=== PATIENT | male | born 1950 | race Caucasian/White ===

== ENCOUNTER 2021-04-23 11:50 | Emergency (ER) | payer MEDICARE, MEDICAID ==
[~2021-04-23] VITALS: Ht 177.8 cm; Wt 82.0 kg
[2021-04-23 11:50] VITALS: BP 136/93
[2021-04-23 12:42] LABS: BASOPHILS % (AUTO) 0.2 % (0-1); EOSINOPHILS % (AUTO) 0.1 % (0-6); HEMATOCRIT 34.2 % (42.0-52.0); HEMOGLOBIN 11.9 g/dl (14.0-17.9); LYMPHOCYTES # (AUTO) 0.5 X10'3 (1.1-4.8); LYMPHOCYTES % (AUTO) 10.6 % (21-51); MEAN CORPUSCULAR HEMOGLOBIN 37.1 PG (27.0-31.0); MEAN CORPUSCULAR HGB CONC 34.9 g/dL (33.0-36.5); MEAN CORPUSCULAR VOLUME 106.4 FL (78-98); MEAN PLATELET VOLUME 8.1 FL (7.4-10.4); MONOCYTES # (AUTO) 0.5 X10'3 (0-0.9); NEUTROPHILS # (AUTO) 3.8 X10'3 (1.8-7.7); NEUTROPHILS % (AUTO) 78.1 % (42-75); PLATELET COUNT 233 X10'3 (140-440); RED BLOOD COUNT 3.21 X10'6 (4.70-6.10); WHITE BLOOD COUNT 4.8 X10'3 (4.5-11.0)
[2021-04-23 12:58] LABS: APTT 31 SECONDS (22-32)
[2021-04-23] MEDS ORDERED: iohexol 350MG/ML 100ml bottle IV ONE ×2 (13:00→14:19)
[2021-04-23 13:52] LABS: ALANINE AMINOTRANSFERASE 26 U/L (12-78); ALBUMIN 3.3 G/DL (3.4-5.0); ALBUMIN/GLOBULIN RATIO 0.7 (1.1-1.5); ALKALINE PHOSPHATASE 83 IU/L (46-116); ANION GAP 5 (8-16); ASPARTATE AMINO TRANSFERASE 21 U/L (10-37); BILIRUBIN,TOTAL 0.3 MG/DL (0.1-1.0); BLOOD UREA NITROGEN 21 MG/DL (7-18); BUN/CREATININE RATIO 18.1 (5.4-32.0); CALCIUM 9.6 MG/DL (8.5-10.1); CHLORIDE 98 MMOL/L (99-107); CREATININE 1.16 MG/DL (0.60-1.10); GLUCOSE 114 MG/DL (70-104); POTASSIUM 4.7 MMOL/L (3.5-5.1); SODIUM 129 MMOL/L (135-145); TOTAL CARBON DIOXIDE 26.1 MMOL/L (24-32); TOTAL PROTEIN 7.9 G/DL (6.4-8.2); eGFR 62 ML/MIN
[2021-04-23] MEDS ORDERED: normal saline 1000ML IV soln IVB ONE (15:15)
[2021-04-23] MEDS ORDERED: SOTROVIMAB 500mg injection 500 MG in normal saline 100ml IV soln 100 ML IV ONE (15:40)
[2021-04-23] MEDS ORDERED: BENZ-38 PO (16:10)
[2021-04-23] MEDS ORDERED: LEVO500T90 PO (16:10)
--- NOTE | 2021-04-23 18:25 | NUR ---
Pt and family member given and understands d/c instructions. IV d/c'd, catheter was intact. Ambulatory with a steady gait.
== END 2021-04-23 18:27 | disposition home or self-care (01) ==
LOC: ER 11:50
DX: U07.1 COVID-19 (principal); J12.82 Pneumonia due to coronavirus disease 2019; R04.2 Hemoptysis; J42 Unspecified chronic bronchitis; F17.200 Nicotine dependence, unspecified, uncomplicated; Z88.0 Allergy status to penicillin
CPT/HCPCS: 36415; 71045; 71250; 71275; 80053; 83605; 84145; 85025; 85610; 85730; 87040; 87635; 96360; 99285; C9803; J3490; J7030; M0247; Q0247; Q9967

== ENCOUNTER 2021-07-01 06:22 | Day surgery (SDC) | payer MEDICARE, MEDICAID ==
[~2021-07-01] VITALS: Ht 177.8 cm; Wt 92.3 kg
[2021-07-01] MEDS ORDERED: normal saline 1000ml 1,000 ML IV SCH ×2 (06:45→08:35)
[2021-07-01 07:00] VITALS: BP 160/100
[2021-07-01] MEDS ORDERED: CLOP75TA34 PO (07:13)
[2021-07-01] MEDS ORDERED: ASPI-1265 PO (07:13)
[2021-07-01] MEDS ORDERED: ATOR40TA72 PO (07:13)
[2021-07-01 07:36] LABS: BASOPHILS % (AUTO) 0.6 % (0-1); EOSINOPHILS # (AUTO) 0.1 X10'3 (0-0.9); EOSINOPHILS % (AUTO) 2.8 % (0-6); HEMATOCRIT 38.8 % (42.0-52.0); HEMOGLOBIN 13.5 g/dl (14.0-17.9); LYMPHOCYTES # (AUTO) 0.9 X10'3 (1.1-4.8); LYMPHOCYTES % (AUTO) 17.1 % (21-51); MEAN CORPUSCULAR HEMOGLOBIN 37.1 PG (27.0-31.0); MEAN CORPUSCULAR HGB CONC 34.8 g/dL (33.0-36.5); MEAN CORPUSCULAR VOLUME 106.7 FL (78-98); MEAN PLATELET VOLUME 8.9 FL (7.4-10.4); MONOCYTES # (AUTO) 0.5 X10'3 (0-0.9); NEUTROPHILS # (AUTO) 3.7 X10'3 (1.8-7.7); NEUTROPHILS % (AUTO) 69.5 % (42-75); PLATELET COUNT 166 X10'3 (140-440); RED BLOOD COUNT 3.64 X10'6 (4.70-6.10); RED CELL DISTRIBUTION WIDTH 14.5 % (11.5-14.5); WHITE BLOOD COUNT 5.3 X10'3 (4.5-11.0)
[2021-07-01] MEDS ORDERED: midazolam 1 mg/ML 2ml injection ONE (08:31)
[2021-07-01] MEDS ORDERED: fentaNYL/PF 50MCG/1 ML 2ML syringe ONE (08:32)
--- NOTE | 2021-07-01 08:55 | NUR ---
Patient back from angio. Procedure cancelled d/t patient no being off Plavix for 5 days.
--- NOTE | 2021-07-01 09:10 | NUR ---
Patient's daughter here to pickup patient. Explained to her why procedure was cancelled. Patient dressed, IV d/c'd. All belongings with patient on d/c.
== END 2021-07-01 09:10 | disposition home or self-care (01) ==
LOC: SSTAY O 06:22
PROVIDERS: ATTEND Radiology Diagnostic Radiology
DX: E27.8 Other specified disorders of adrenal gland (principal); Z53.8 Procedure and treatment not carried out for other reasons; C34.02 Malignant neoplasm of left main bronchus; Z88.0 Allergy status to penicillin; Z86.73 Personal history of transient ischemic attack (TIA), and cerebral infarction without residual deficits; Z79.01 Long term (current) use of anticoagulants; Z79.82 Long term (current) use of aspirin; Z79.899 Other long term (current) drug therapy; Z87.891 Personal history of nicotine dependence
CPT/HCPCS: 36415; 85025; 85610; J2250; J3010

== ENCOUNTER 2021-07-04 09:27 | Day surgery (SDC) | payer MEDICARE, MEDICAID ==
[~2021-07-04] VITALS: Ht 177.8 cm; Wt 91.5 kg
[~2021-07-04 09:27] MED LIST: ASPI-1265 PO; ATOR40TA72 PO; CLOP75TA34 PO
[2021-07-04] MEDS ORDERED: normal saline 1000ml 1,000 ML IV PRN (10:05)
[2021-07-04 10:21] VITALS: BP 129/104
[2021-07-04] MEDS ORDERED: heparin sodium, porcine/PF 100unit/ml 5ML syringe ONE (10:33)
[2021-07-04] MEDS ORDERED: LIDOcaine 1%/PF 5ML 10 MG/ML VIAL ONE (10:33)
--- NOTE | 2021-07-04 11:42 | NUR ---
Problems reprioritized. Patient report given, questions answered & plan of care reviewed with Pauly ENRIQUEZ.
[2021-07-04] MEDS ORDERED: fentaNYL/PF 50MCG/1 ML 2ML syringe ONE (12:45)
[2021-07-04] MEDS ORDERED: midazolam 1 mg/ML 2ml injection ONE ×2 (12:45→13:13)
[2021-07-04 13:36] VITALS: BP 130/90
[2021-07-04] MEDS ORDERED: normal saline 1000ml 1,000 ML IV SCH (13:40)
[2021-07-04 13:45] VITALS: BP 124/78
[2021-07-04 14:00] VITALS: BP 120/86
[2021-07-04 14:15] VITALS: BP 108/72
[2021-07-04 14:30] VITALS: BP 117/82
== END 2021-07-04 14:45 | disposition home or self-care (01) ==
LOC: SSTAY O 09:27
PROVIDERS: ATTEND Radiology Diagnostic Radiology
DX: C34.02 Malignant neoplasm of left main bronchus (principal); Z88.0 Allergy status to penicillin; Z79.82 Long term (current) use of aspirin; Z79.899 Other long term (current) drug therapy; Z79.01 Long term (current) use of anticoagulants
CPT/HCPCS: 36561; 76937; 77001; 99152; 99153; C1769; C1788; C1894; J1642; J2250; J3010; J3490